=== PATIENT | female | born 1955 | race Caucasian/White ===

== ENCOUNTER 2016-12-26 16:49 | Inpatient (IN) | payer BC, OTHER ==
[~2016-12-26] VITALS: Ht 162.6 cm; Wt 66.2 kg
--- NOTE | 2016-12-26 17:00 | NUR ---
BIB [facility] 86 FROM HOME,SEIZURE EPISODE, [place] 5 MG IVP GIVEN AFTER SHE HAD ANOTHER SZ IN THE AMBULANCE. PT CAME IN AMS. VSS. SEIZURE PRECAUTIONS IMPLEMENTED. NO HEAD TRAUMA, NO ORAL TRAUMA NOTED. VSS. SEEN BY MD. SAFETY AND COMFORT MEASURES PROVIDED. WILL MONITOR.
[2016-12-26] MEDS ORDERED: UNK MEDS (17:04)
[2016-12-26 17:13] LABS: BASOPHILS # (AUTO) 0.1 /CMM (0.0-0.2); BASOPHILS % (AUTO) 1.2 % (0.0-2.0); EOSINOPHILS # (AUTO) 0.1 /CMM (0.0-0.7); EOSINOPHILS % (AUTO) 1.3 % (0.0-6.0); HEMATOCRIT 41 % (33-45); HEMOGLOBIN 13.6 g/dL (11.5-14.8); LYMPHOCYTES # (AUTO) 4.2 /CMM (0.8-4.8); LYMPHOCYTES % (AUTO) 41.7 % (20.0-44.0); MEAN CORPUSCULAR HEMOGLOBIN 28 PG (26.0-33.0); MEAN CORPUSCULAR HGB CONC 33 g/dl (31.0-36.0); MEAN CORPUSCULAR VOLUME 84 fL (82-100); MONOCYTES # (AUTO) 1.5 /CMM (0.1-1.30); NEUTROPHILS % (AUTO) 40.8 % (43.0-81.0); PLATELET COUNT (AUTO) 219 /CMM (150-450); RDW COEFFICIENT OF VARIATION 15.1 (11.5-15.0); RED BLOOD CELL COUNT(AUTO) 4.86 MIL/uL (4.0-5.2); WHITE BLOOD COUNT (AUTO) 9.9 K/uL (4.3-11.0)
--- NOTE | 2016-12-26 17:20 | NUR ---
URINE SAMPLE OBTAINED, SENT. BLOOD DRAWN FOR LABS.
[2016-12-26 17:27] LABS: ALANINE AMINOTRANSFERASE 39 U/L (12-78); ALBUMIN 3.3 g/dL (3.4-5.0); ALKALINE PHOSPHATASE 59 U/L (46-116); ASPARTATE AMINOTRANSFERASE 32 U/L (15-37); BILIRUBIN,DIRECT 0.1 mg/dL (0.0-0.2); BILIRUBIN,TOTAL 0.4 mg/dL (0.2-1.0); CALCIUM, SERUM 9.3 mg/dL (8.5-10.1); CARBON DIOXIDE 24 mmol/L (21-32); CHLORIDE 101 mmol/L (98-107); CREATININE 1.2 mg/dL (0.6-1.3); GFR 45 mL/min (>60); GLUCOSE 132 mg/dL (74-106); POTASSIUM 4.5 mmol/L (3.5-5.1); SODIUM SERUM 135 mmol/L (136-145); TOTAL PROTEIN, SERUM 6.6 g/dL (6.4-8.2); UREA NITROGEN, BLOOD 28 mg/dL (7-18)
[2016-12-26 17:36] LABS: CANNABINOID, URINE NEGATIVE (NEGATIVE); PHENCYCLIDINE SCREEN,URINE NEGATIVE (NEGATIVE)
[2016-12-26 17:41] LABS: VALPROIC ACID 63 ug/mL (50-100)
[2016-12-26 17:44] LABS: PHENOBARBITAL 1 ug/ml (15-39); PHENYTOIN (DILANTIN) < 0.5 ug/ml (10.0-20.0)
--- NOTE | 2016-12-26 18:00 | NUR ---
FAMILY MEMBERS AT BS AND UPDATED WITH PT'S STATUS.
--- NOTE | 2016-12-26 18:53 | NUR ---
MASON KNOWLES, BROTHER,
[2016-12-26 19:19] LABS: APPEARANCE,URINE Clear (CLEAR); BILIRUBIN,URINE Negative (NEGATIVE); BLOOD, URINE Negative Ery/uL (NEGATIVE); COLOR,URINE Yellow (YELLOW); KETONES,URINE Negative (NEGATIVE); LEUKOCYTE ESTERASE ,URINE Negative (NEGATIVE); NITRITE, URINE Negative (NEGATIVE); PROTEIN,URINE 30 mg/dl (NEGATIVE); UGLUCOSE Negative (NEGATIVE); UROBILINOGEN,URINE 0.2 EU/dL (0.2)
[2016-12-26] MEDS ORDERED: TIOT18CA3 IH (19:28)
[2016-12-26] MEDS ORDERED: NABU750T2 PO (19:28)
[2016-12-26] MEDS ORDERED: DIVA250T6 PO (19:28)
[2016-12-26] MEDS ORDERED: LEVO100T9 PO (19:28)
[2016-12-26] MEDS ORDERED: DULO30CA2 PO (19:28)
[2016-12-26] MEDS ORDERED: FENO200C PO (19:28)
[2016-12-26] MEDS ORDERED: SPIR25TA4 PO (19:28)
[2016-12-26] MEDS ORDERED: ALEN70TA45 PO (19:28)
[2016-12-26] MEDS ORDERED: OMEP20TA68 PO (19:28)
[2016-12-26] MEDS ORDERED: ATOR40TA PO (19:28)
[2016-12-26] MEDS ORDERED: TAMS-12 PO (19:28)
[2016-12-26] MEDS ORDERED: FLUT1BLS IH (19:28)
[2016-12-26] MEDS ORDERED: MONT10TA22 PO (19:28)
--- NOTE | 2016-12-26 19:40 | NUR ---
CALLED NURSING SUP. FOR TELE BED
--- NOTE | 2016-12-26 19:52 | NUR ---
ELLE-- CALLED [facility] PER AKILAH
--- NOTE | 2016-12-26 19:58 | NUR ---
ER TALKING TO DR. SCOTT KRAFT REGARDING PT ADMISSION. WILL CALL FOR REPORT WHEN BED IS AVAILABLE.
--- NOTE | 2016-12-26 20:53 | NUR ---
report given to telesales professionalsusan Wheeler. will transport pt via acls protocol.
[2016-12-26] MEDS ORDERED: IV NS 0.9% 1,000 ML IV PRN (20:57)
[2016-12-26] MEDS ORDERED: MAGNESIUM HYDROXIDE 30 ML UDC PO PRN (21:00)
[2016-12-26] MEDS ORDERED: ONDANSETRON HCL/PF 4 MG/2 ML VIAL IVP PRN (21:00)
[2016-12-26] MEDS ORDERED: ACETAMINOPHEN 325 MG TABLET PO PRN (21:00)
[2016-12-26] MEDS ORDERED: HYDROCODONE/APAP 5/325MG 1 EACH TABLET PO PRN (21:00)
[2016-12-26] MEDS ORDERED: ENOXAPARIN SODIUM 40 MG/0.4 ML DISP.SYRIN SQ SCH (21:00)
[2016-12-26] MEDS ORDERED: Z GUARD REMEDY 2 OZ OINT TP PRN (21:00)
[2016-12-26] MEDS ORDERED: ZOLPIDEM TARTRATE 5 MG TABLET PO PRN (21:00)
[2016-12-26] MEDS ORDERED: MAG HYDROX/AL HYDROX/SIMETH 30 ML UDC PO PRN (21:00)
[2016-12-26] MEDS ORDERED: LORAZEPAM INJ 2 MG/ML VIAL IV PRN (21:00)
[2016-12-26] MEDS ORDERED: ENOXAPARIN SODIUM 40 MG/0.4 ML DISP.SYRIN SQ ONE (21:43)
--- NOTE | 2016-12-26 21:50 | NUR ---
COOKER MEAL NOTE RECEIVED PATIENT FROM DAY SHIFT, PATIENT IS ALERT AND ORIENTEDX2-3, LITTLE LETHARGIC, HAD EPISODES OF SEIZUREX2 AT HOME AND IN THE AMBULANCE. PATIENT WAS ABLE TO ANSWER THE BASIC QUESTIONS WHEN A NURSE ASKED. IV ON RIGHT AC 20G IS PATENT AND INTACT, HL ONLY. SACRAL REDNESS NOTED, PICTURES TAKEN AND PUT THEM IN A CHART. TELE MONITOR SR 71. SRX2, BED IN LOW POSITION, CALL LIGHT WITHIN REACH, WILL CONTINUE TO MONITOR PATIENT.
[2016-12-26 22:35] VITALS: BP 141/73
[2016-12-27 00:36] VITALS: BP 172/77
[2016-12-27 04:07] VITALS: BP 154/68
[2016-12-27] MEDS ORDERED: IV NS 0.9% 1,000 ML ONE (06:15)
[2016-12-27] MEDS ORDERED: IV SET PRIMARY PUMP SET 1 EA INFUS.SET MC ONE (06:15)
[2016-12-27 06:54] LABS: BASOPHILS % (AUTO) 0.2 % (0.0-2.0); EOSINOPHILS % (AUTO) 0.1 % (0.0-6.0); HEMATOCRIT 46 % (33-45); HEMOGLOBIN 15.1 g/dL (11.5-14.8); LYMPHOCYTES # (AUTO) 1.8 /CMM (0.8-4.8); LYMPHOCYTES % (AUTO) 14.5 % (20.0-44.0); MEAN CORPUSCULAR HEMOGLOBIN 27 PG (26.0-33.0); MEAN CORPUSCULAR HGB CONC 33 g/dl (31.0-36.0); MEAN CORPUSCULAR VOLUME 82 fL (82-100); MONOCYTES # (AUTO) 1.6 /CMM (0.1-1.30); MONOCYTES % (AUTO) 12.6 % (2.0-12.0); NEUTROPHILS # (AUTO) 9.1 /CMM (1.8-8.9); NEUTROPHILS % (AUTO) 72.6 % (43.0-81.0); PLATELET COUNT (AUTO) 252 /CMM (150-450); RDW COEFFICIENT OF VARIATION 15.9 (11.5-15.0); RED BLOOD CELL COUNT(AUTO) 5.61 MIL/uL (4.0-5.2); WHITE BLOOD COUNT (AUTO) 12.6 K/uL (4.3-11.0)
--- NOTE | 2016-12-27 06:57 | NUR ---
INSURANCE AGENCY OWNER NOTE PATIENT IS RESTING IN BED COMFORTABLY, NO FACIAL GRIMACE OR RESPIRATORY DISTRESS NOTED. IV ON LEFT AC IS PATENT AND INTACT, FLUID IS RUNNING. NEURO CHECK UP DONE EVERY 4 HRS, PATIENT IS ALERT AND RESPONSIVE. TELE SR 84. WILL ENDORSE TO DAY SHIFT FOR HEATHER.
[2016-12-27 07:05] VITALS: BP 162/83
[2016-12-27 07:18] LABS: CALCIUM, SERUM 9.6 mg/dL (8.5-10.1); CREATININE 1.1 mg/dL (0.6-1.3); MAGNESIUM 2.2 mg/dL (1.8-2.4); PHOSPHORUS 4.1 mg/dL (2.5-4.9); POTASSIUM 4.1 mmol/L (3.5-5.1)
[2016-12-27 07:25] LABS: THYROID STIMULATING HORMONE 1.823 uIU/mL (0.358-3.74)
[2016-12-27] MEDS ORDERED: LEVOTHYROXINE SODIUM 100 MCG TABLET PO SCH (07:30)
[2016-12-27] MEDS ORDERED: PANTOPRAZOLE 40 MG TABLET.DR PO SCH (07:30)
--- NOTE | 2016-12-27 07:39 | NUR ---
FUNERAL HOME ASSOCIATE OPENING NOTE PATIENT IS ALERT AND ORIENTED x3. NO PAIN AT THIS TIME. NO SOB OR DISTRESS NOTED. CALL LIGHT WITHIN REACH. SAFETY MEASURES IMPLEMENTED. IV INTACT AND PATENT NO REDNESS OR SWELLING. ON SEIZURE PRECAUTION. WILL CONTINUE TO MONITOR
[2016-12-27 08:00] VITALS: BP 160/79
[2016-12-27] MEDS ORDERED: TAMSULOSIN 0.4 MG CAP.SR.24H PO SCH (09:00)
[2016-12-27] MEDS ORDERED: TIOTROPIUM BROMIDE 6 CAP/BOX CAP.W.DEV IH SCH (09:00)
[2016-12-27] MEDS ORDERED: MONTELUKAST SODIUM (10MG) 10 MG TABLET PO SCH (09:00)
[2016-12-27] MEDS ORDERED: SPIRONOLACTONE 25 MG TABLET PO SCH (09:00)
[2016-12-27] MEDS ORDERED: DULOXETINE HCL 30 MG CAPSULE.DR PO SCH (09:00)
[2016-12-27] MEDS ORDERED: ATORVASTATIN 40 MG TABLET PO SCH (09:00)
[2016-12-27] MEDS ORDERED: DIVALPROEX SODIUM 250 MG TABLET.DR PO SCH (09:00)
--- NOTE | 2016-12-27 09:39 | NUR ---
WOUND CARE CONSULT: PT PRESENTS WITH INCONTINENCE. SKIN TO BE KEPT CLEAN AND DRY. PT ON [employer] COMFORT GEL MATTRESS. PT TO BE TURNED AND REPOSITIONED EVERY 2 HRS PT CONDITION PERMITS, HEELS FLOATED. ALL SKIN PROTECTION MEASURES IN PLACE AND DISCUSSED WITH NURSING STAFF. MD IN AGREEMENT WITH PLAN OF CARE. Addendum: 12/27/16 at 0941 by LEXIS WILLETT WNDNU Amended: Links added.
[2016-12-27] MEDS ORDERED: DIVA250T4 PO (11:01)
[2016-12-27 12:00] VITALS: BP 143/81
[2016-12-27] MEDS ORDERED: IPRATROPIUM NEB FS 0.5 MG/2.5 ML AMPUL.NEB NEB SCH (13:30)
[2016-12-27 16:00] VITALS: BP 151/80
--- NOTE | 2016-12-27 18:15 | NUR ---
BALANCE WHEEL FACER NOTE PATIENT IS ALERT AND ORIENTED x3. NO PAIN AT THIS TIME. NO SOB OR DISTRESS NOTED. ALL DUE MEDICATION GIVEN ORDERED. ALL BELONGINGS WITH PATIENTS FAMILY. PRESCRIPTION GIVEN TO PATIENT AND CAREGIVER. SAFETY MEASURES IMPLEMENTED. IV REMOVED. SKIN INTACT. PATIENT GOING HOME WITH CAREGIVER AND HOME HEALTH
[2016-12-28] MEDS ORDERED: DIVALPROEX SODIUM 125 MG CAP.SPRINK PO SCH (09:00)
[2016-12-31] MEDS ORDERED: ALENDRONATE 70 MG TABLET PO SCH (09:00)
[2017-01-05] MEDS ORDERED: LEVO500T15 PO (10:47)
== END 2016-12-27 18:25 | disposition home health service (06) | DRG 101 ==
LOC: ER 16:50 → TELE 20:49 → MED 12-27 09:09
PROVIDERS: ADMIT Internal Medicine; ATTEND Internal Medicine
DX: G40.909 Epilepsy, unspecified, not intractable, without status epilepticus (principal); E87.1 Hypo-osmolality and hyponatremia; E44.1 Mild protein-calorie malnutrition; N31.9 Neuromuscular dysfunction of bladder, unspecified; E88.09 Other disorders of plasma-protein metabolism, not elsewhere classified; D72.829 Elevated white blood cell count, unspecified; E86.9 Volume depletion, unspecified; E03.9 Hypothyroidism, unspecified; Z79.899 Other long term (current) drug therapy; Z68.25 Body mass index [BMI] 25.0-25.9, adult
CPT/HCPCS: 36415; 70450-TC; 71010-TC; 80048-TC; 80061-TC; 80076-TC; 80164-TC; 80184-TC; 80185-TC; 80305; 81000-TC; 82962-TC; 83735-TC; 84100-TC; 84443-TC; 85025-TC; 87081-TC; 87086-TC; A4606; J1650; J7030; Z7610

== ENCOUNTER 2017-01-02 14:06 | Inpatient (IN) | payer OTHER ==
[~2017-01-02] VITALS: Ht 165.1 cm; Wt 73.0 kg
[~2017-01-02 14:06] MED LIST: ALEN70TA45 PO; ATOR40TA PO; DIVA250T4 PO; DIVA250T6 PO; DULO30CA2 PO; FENO200C PO; FLUT1BLS IH; LEVO100T9 PO; MONT10TA22 PO; NABU750T2 PO; OMEP20TA68 PO; SPIR25TA4 PO; TAMS-12 PO; TIOT18CA3 IH; UNK MEDS
[2017-01-02] MEDS ORDERED: IV NS 0.9% 1,000 ML BAG IV ONE (14:30)
[2017-01-02] MEDS ORDERED: IV NS 0.9% 500 ML IV ONE (14:42)
[2017-01-02] MEDS ORDERED: IV SET PRIMARY 1 EA INFUS.SET MC ONE (14:42)
[2017-01-02] MEDS ORDERED: IV NS 0.9% 2,000 ML ONE (14:42)
[2017-01-02 14:43] LABS: BASOPHILS # (AUTO) 0.3 /CMM (0.0-0.2); BASOPHILS % (AUTO) 1.8 % (0.0-2.0); EOSINOPHILS % (AUTO) 0.1 % (0.0-6.0); HEMATOCRIT 34 % (33-45); HEMOGLOBIN 11.9 g/dL (11.5-14.8); LYMPHOCYTES % (AUTO) 6.8 % (20.0-44.0); MEAN CORPUSCULAR HEMOGLOBIN 29 PG (26.0-33.0); MEAN CORPUSCULAR HGB CONC 35 g/dl (31.0-36.0); MEAN CORPUSCULAR VOLUME 82 fL (82-100); MONOCYTES # (AUTO) 1.9 /CMM (0.1-1.30); MONOCYTES % (AUTO) 12.3 % (2.0-12.0); NEUTROPHILS # (AUTO) 12.2 /CMM (1.8-8.9); PLATELET COUNT (AUTO) 259 /CMM (150-450); RDW COEFFICIENT OF VARIATION 14.7 (11.5-15.0); RED BLOOD CELL COUNT(AUTO) 4.18 MIL/uL (4.0-5.2); WHITE BLOOD COUNT (AUTO) 15.4 K/uL (4.3-11.0)
[2017-01-02 14:50] LABS: CALCIUM, SERUM 8.4 mg/dL (8.5-10.1); CARBON DIOXIDE 24 mmol/L (21-32); CHLORIDE 103 mmol/L (98-107); CREATININE 1.9 mg/dL (0.6-1.3); GFR 27 mL/min (>60); GLUCOSE 218 mg/dL (74-106); POTASSIUM 4.5 mmol/L (3.5-5.1); SODIUM SERUM 136 mmol/L (136-145); UREA NITROGEN, BLOOD 39 mg/dL (7-18)
[2017-01-02 14:54] LABS: INR 1.12 (0.87-1.13); PROTHROMBIN TIME 11.7 SECS (9.5-12.7)
[2017-01-02 14:56] LABS: ALANINE AMINOTRANSFERASE 31 U/L (12-78); ALBUMIN 2.4 g/dL (3.4-5.0); ALKALINE PHOSPHATASE 60 U/L (46-116); ASPARTATE AMINOTRANSFERASE 28 U/L (15-37); BILIRUBIN,DIRECT 0.2 mg/dL (0.0-0.2); BILIRUBIN,TOTAL 0.7 mg/dL (0.2-1.0)
[2017-01-02 14:58] LABS: TROPONIN I < 0.017 ng/mL (0.00-0.056)
[2017-01-02] MEDS ORDERED: LEVA15HF5 IH (15:11)
[2017-01-02] MEDS ORDERED: ASCO10007 PO (15:11)
[2017-01-02] MEDS ORDERED: DIVA500T7 PO (15:11)
[2017-01-02] MEDS ORDERED: DIVA500T54 PO (15:11)
[2017-01-02] MEDS ORDERED: FOLI1TAB16 PO (15:11)
[2017-01-02] MEDS ORDERED: CA C1TAB95 PO (15:11)
[2017-01-02] MEDS ORDERED: CARB15DR63 OT (15:11)
[2017-01-02] MEDS ORDERED: VITA400C24 PO (15:11)
[2017-01-02] MEDS ORDERED: KETO15CR TP (15:11)
[2017-01-02] MEDS ORDERED: BETH25TA PO (15:11)
[2017-01-02] MEDS ORDERED: ASPI81TA2 PO (15:11)
[2017-01-02] MEDS ORDERED: FLUT16SP BNOSTRILS (15:11)
[2017-01-02] MEDS ORDERED: LEVO250C PO (15:11)
[2017-01-02] MEDS ORDERED: DESO15CR TP (15:11)
[2017-01-02] MEDS ORDERED: [UNRECOGNIZED DRUG - CODE] PO (15:11)
[2017-01-02 15:13] LABS: LACTIC ACID 3.1 mmol/L (0.4-2.0)
--- NOTE | 2017-01-02 15:20 | NUR ---
URINE SAMPLE COLLECTED VIA STRAIGHT ALFARO CATHETER, PT TOLERATED WELL
[2017-01-02 15:35] LABS: APPEARANCE,URINE Cloudy (CLEAR); BILIRUBIN,URINE Negative (NEGATIVE); BLOOD, URINE Moderate Ery/uL (NEGATIVE); COLOR,URINE Yellow (YELLOW); KETONES,URINE Negative (NEGATIVE); LEUKOCYTE ESTERASE ,URINE Large (NEGATIVE); NITRITE, URINE Negative (NEGATIVE); PH,URINE 5.5 (5.0-8.0); PROTEIN,URINE 100 mg/dl (NEGATIVE); UGLUCOSE Negative (NEGATIVE); UROBILINOGEN,URINE 0.2 EU/dL (0.2)
[2017-01-02 15:41] LABS: ADD URINE CULTURE YES; BACTERIA,URINE 3+ /HPF (None Seen); WBC,URINE 51-80 /HPF (0-3)
[2017-01-02 15:42] LABS: SQUAMOUS EPITHELIAL CELL,UR Few /HPF (None Seen)
[2017-01-02 15:45] LABS: ANISOCYTOSIS 1+; BAND % (MANUAL) 23 % (0.0-5.0); LYMPHOCYTES % (MANUAL) 5 % (16-48); MONOCYTES % (MANUAL) 20 % (0-11.0); NEUTROPHILS % (MANUAL) 52 (42-76); PLATELET ESTIMATE ADEQUATE
[2017-01-02] MEDS ORDERED: CEFTRIAXONE 1GM BAG (ER ONLY) 1 GM/50 ML PIGGYBACK IV ONE (16:00)
[2017-01-02] MEDS ORDERED: CEFTRIAXONE 1GM BAG (ER ONLY) 50 ML IV ONE (16:00)
[2017-01-02] MEDS ORDERED: IV SET PRIMARY PUMP SET 1 EA INFUS.SET MC ONE ×2 (16:00→18:51)
--- NOTE | 2017-01-02 16:22 | NUR ---
DR.SHAO CAUSEY
--- NOTE | 2017-01-02 16:30 | NUR ---
Patient is resting comfortably in bed with eyes closed. Easily aroused. VSS
--- NOTE | 2017-01-02 16:46 | NUR ---
REPORT GIVEN TO DONI 112-1 TELE
[2017-01-02 17:00] VITALS: BP 143/80
[2017-01-02] MEDS: FLUTICASONE PROPIONATE 16 GM BOTTLE NS SCH (18:00)
[2017-01-02] MEDS ORDERED: KETOCONAZOLE 2% CREAM 15 GM TUBE TP PRN (18:00)
[2017-01-02] MEDS ORDERED: Potassium Chloride 20 MEQ in IV NS 0.9% 1,000 ML IV PRN (18:30)
[2017-01-02] MEDS ORDERED: LEVOFLOXACIN 500 MG /D5W 100ML 500 MG in PREMIX 1 EA IV ONE (18:30)
[2017-01-02] MEDS: ACETAMINOPHEN 325 MG TABLET PO PRN (18:49)
[2017-01-02] MEDS ORDERED: SECONDARY IV SET 1 EA INFUS.SET MC ONE (18:51)
[2017-01-02] MEDS: IV NS 0.9% 1,000 ML IV PRN (19:00)
[2017-01-02] MEDS ORDERED: IV NS 0.9% 1,000 ML BAG IV SCH (19:00)
[2017-01-02] MEDS: FOLIC ACID 1 MG TABLET PO SCH (19:10)
[2017-01-02] MEDS: VITAMIN E 400 UNIT CAPSULE PO SCH (19:10)
[2017-01-02] MEDS: TAMSULOSIN 0.4 MG CAP.SR.24H PO SCH (19:10)
--- NOTE | 2017-01-02 19:15 | NUR ---
RN INITIAL NOTES RECEIVED PATIENT IN BED, PATIENT OBSERVED TO BE LETHARGIC, EASILY AROUSABLE WITH VERBAL AND TACTILE STIMULI. DENIES ANY PAIN AND DISCOMFORT. PATIENT OBSERVED TO BE FLUSHED, SKIN IS WARM AND MOIST TO TOUCH, PATIENT IS ST ON TELE WITH HR OF 118, BREATHING IS SHALLOW AT RATE OF 24. PER AM NURSE, PATIENT WAS GIVEN TYLENOL FOR TEMP OF 100.4 AT 1850. TEMP RECHECKED AT THIS TIME AND NOTED TO BE 98.4. WILL MONITOR CLOSELY. PATIENT WITH L HAND G20, FLUSHED AND INTACT, DRESSING CHANGED NEEDED, KEPT INTACT, IVF OF NS AT 75CC/HR INFUSING WELL. R AC G18, FLUSHED AND PATENT, ON SL. PATIENT'S NEEDS ANTICIPATED AND MET. SAFETY AND COMFORT ENSURED. BED ALARM IN PLACE. REPOSITIONED PATIENT FOR SAFETY. CALL LIGHT IN REACH. WILL MONITOR.
[2017-01-02 20:00] VITALS: BP 93/56
--- NOTE | 2017-01-02 20:30 | NUR ---
RN NOTES RECHECKED PATIENT AND PATIENT IN BED, SLEEPING COMFORTABLY. NO DISTRESS AT THIS TIME. STILL ST WITH HR OF 109. AFEBRILE, COOLING MEASURES CONTINUED. PATIENT ABLE TO BE MORE RESPONSIVE WITH STAFF, ALERT AND ORIENTED X3. OFFERED FLUIDS TOLERATED BY PATIENT, ASPIRATION PRECAUTIONS OBSERVED AT ALL TIMES. NEEDS ANTICIPATED. CALL LIGHT IN REACH.
[2017-01-02] MEDS: DIVALPROEX SODIUM 500 MG TABLET.DR PO SCH (21:00)
--- NOTE | 2017-01-02 21:36 | NUR ---
RN NOTES PATIENT REFUSED TO TAKE HER SCHEDULED DEPAKOTE ORDERED. PER PATIENT SHE ONLY TAKES IT IN THE MORNING WITH BREAKFAST. EXPLAINED TO PATIENT THE RISKS AND BENEFITS X3. PATIENT STRONGLY REFUSED AND INSISTED THAT SHE ONLY TAKES IT IN THE MORNING. PATIENT IS ALERT AND ORIENTED. WILL MONITOR CLOSELY FOR ANY SEIZURE ACTIVITY.
[2017-01-02] MEDS ORDERED: CARBAMIDE PEROXIDE OTIC 15 ML BOTTLE OT SCH (22:00)
[2017-01-03] VITALS: BP 93/47
[2017-01-03 04:00] VITALS: BP 95/56
[2017-01-03] MEDS: IV NS 0.9% 1,000 ML IV PRN (05:57)
--- NOTE | 2017-01-03 06:25 | NUR ---
RN CLOSING NOTES PATIENT IN BED, AWAKE AND ALERT ORIENTED X2-3, REORIENTED NEEDED WITH HELP. PATIENT DENIES ANY PAIN AND DISCOMFORT. NOT IN ANY FORM OF CARDIAC/RESPIRATORY DISTRESS OBSERVED OVERNIGHT. PATIENT AFEBRILE, VS MONITORED CLOSELY. IVF INFUSING WELL ON PATIENT'S L HAND G20, NO SIGNS OF INFILTRATION NOTED. R AC G18, FLUSHED AND KEPT PATENT. PATIENT KEPT CLEAN AND DRY. TURNED AND REPOSITIONED [id number]. PATIENT'S NEEDS ANTICIPATED AND MET. SAFETY AND COMFORT ENSURED. BED IN LOW AND LOCKED POSITION. CALL LIGHT IN REACH. WILL ENDORSE ACCORDINGLY FOR CONTINUITY OF CARE. Addendum: 01/03/17 at 0639 by GRISELDA BURDEN RN PATIENT IS SR WITH HR IN THE 90s OVERNIGHT.
--- NOTE | 2017-01-03 07:00 | NUR ---
RN INITIAL NOTE RECEIVED PT FROM PM NURSE. PT A/O 2-3 ABLE TO VERBALIZE NEEDS AND WANTS. NC 2L SPO2 97 % NO C/O OF ACUTE SOB. TELE SR 92. BILATERAL HEARING AIDS INTACT.IV L HAND #20G NS @ 75 ML/HR R AC #18G SL PATENT FLUSHED AND INTACT. PT CLEAN WARM AND DRY COMFORTABLE IN BED. ALL SAFETY MEASURES IN PLACE. WILL CONTINUE TO CLOSELY MONITOR.
--- NOTE | 2017-01-03 07:10 | NUR ---
RN INITIAL NOTE RECEIVED PT FROM PM NURSE. PT A/O X2 KITTITIAN SPEAKING ABLE TO MOUTH WORDS. [place] #8 [id number]% COOL AEROSOL. GT PLACEMENT CK NO RESIDUAL NOVASOURCE 60ML/HR. IV YARY PICC LINE NS@TKO PATENT FLUSHED AND INTACT. R FEMORAL HD CATH. ALL SAFETY MEASURES IN PLACE. WILL CONTINUE TO MONITOR CLOSELY. Addendum: 01/03/17 at 0745 by DAVIE HERNANDEZ RN INITIAL NOTE ABOVE NOT FOR PT ABOVE.
[2017-01-03 08:00] VITALS: BP 80/40
[2017-01-03 08:09] LABS: EOSINOPHILS % (AUTO) 0.1 % (0.0-6.0); HEMATOCRIT 30 % (33-45); LYMPHOCYTES # (AUTO) 1.4 /CMM (0.8-4.8); LYMPHOCYTES % (AUTO) 7.4 % (20.0-44.0); MEAN CORPUSCULAR HEMOGLOBIN 28 PG (26.0-33.0); MEAN CORPUSCULAR HGB CONC 33 g/dl (31.0-36.0); MEAN CORPUSCULAR VOLUME 83 fL (82-100); MONOCYTES # (AUTO) 2.9 /CMM (0.1-1.30); MONOCYTES % (AUTO) 15.7 % (2.0-12.0); NEUTROPHILS # (AUTO) 14.1 /CMM (1.8-8.9); NEUTROPHILS % (AUTO) 76.8 % (43.0-81.0); PLATELET COUNT (AUTO) 192 /CMM (150-450); RED BLOOD CELL COUNT(AUTO) 3.63 MIL/uL (4.0-5.2); WHITE BLOOD COUNT (AUTO) 18.4 K/uL (4.3-11.0)
[2017-01-03 08:10] LABS: CALCIUM, SERUM 7.4 mg/dL (8.5-10.1); CREATININE 2.5 mg/dL (0.6-1.3); MAGNESIUM 1.6 mg/dL (1.8-2.4); PHOSPHORUS 3.8 mg/dL (2.5-4.9); POTASSIUM 4.4 mmol/L (3.5-5.1)
[2017-01-03] MEDS: FLUTICASONE PROPIONATE 16 GM BOTTLE NS SCH (08:14)
[2017-01-03] MEDS: FOLIC ACID 1 MG TABLET PO SCH ×2 (08:14→17:27)
[2017-01-03] MEDS: ASCORBIC ACID 500 MG TABLET PO SCH (08:15)
[2017-01-03] MEDS: PANTOPRAZOLE 40 MG TABLET.DR PO SCH (08:15)
[2017-01-03] MEDS: VITAMIN E 400 UNIT CAPSULE PO SCH (08:15)
[2017-01-03] MEDS: MONTELUKAST SODIUM (10MG) 10 MG TABLET PO SCH (08:15)
[2017-01-03] MEDS: ATORVASTATIN 40 MG TABLET PO SCH (08:15)
[2017-01-03] MEDS: LEVOTHYROXINE SODIUM 100 MCG TABLET PO SCH (08:15)
[2017-01-03] MEDS: BETHANECHOL CHLORIDE (25 MG) 25 MG TABLET PO SCH ×2 (08:15→17:28)
[2017-01-03] MEDS: DIVALPROEX SODIUM 500 MG TABLET.DR PO SCH ×2 (08:16→12:20)
[2017-01-03] MEDS: CALCIUM CITRATE(CITRACAL) /VITAMIN D 1 TAB TABLET PO SCH (08:16)
[2017-01-03] MEDS: ASPIRIN 81 MG TAB.CHEW PO SCH (08:16)
[2017-01-03] MEDS: MULTIVIT, IRON, MIN NO. 8, FA 1 TAB TABLET PO SCH (08:17)
[2017-01-03] MEDS ORDERED: LEVOCARNITINE PO SCH (09:00)
[2017-01-03] MEDS ORDERED: NABUMETONE 500 MG TABLET PO SCH (09:00)
[2017-01-03] MEDS ORDERED: MEROPENEM 1 G in IV NS 0.9% 100 ML IV SCH (09:00)
[2017-01-03] MEDS ORDERED: PIPERACILLIN /TAZOBACTAM 2.25 G in IV D5W 50 ML IV SCH (09:00)
[2017-01-03] MEDS ORDERED: LEVOFLOXACIN 250 MG /D5W 50 ML 250 MG in PREMIX 1 EA IV SCH ×2 (09:00→18:00)
--- NOTE | 2017-01-03 09:59 | NUR ---
RN NOTE PT SOB HX OF ASTHMA CALLED DR. BETTENCOURT ORDERED ALBUTEROL 1 UNIT Q4 HR PRN. CALL RT TO START TX.
[2017-01-03] MEDS ORDERED: IPRATROPIUM BROMIDE 14 GM INHALER (or 12.9 GM) IH PRN (10:00)
[2017-01-03] MEDS ORDERED: SECONDARY IV SET 1 EA INFUS.SET MC ONE ×2 (10:00→14:54)
[2017-01-03] MEDS: NABUMETONE 500 MG TABLET PO SCH (10:06)
[2017-01-03] MEDS: Magnesium 1GM/D5W 100ML PREMIX 100 ML IV SCH ×2 (10:06→12:16)
[2017-01-03] MEDS: ALBUTEROL FS 2.5 MG/0.5 ML VIAL.NEB NEB PRN ×2 (10:25→10:27)
[2017-01-03] MEDS ORDERED: MEROPENEM 500 MG in IV NS 0.9% 50 ML IV SCH (11:00)
--- NOTE | 2017-01-03 11:21 | NUR ---
RN NOTE CALLED DR. BETTENCOURT BLADDER SCAN DONE PT RETAINING 1260 ML OF URINE. ORDERED F/C INSERTION.
[2017-01-03] MEDS ORDERED: Z GUARD REMEDY 2 OZ OINT TP PRN (11:30)
[2017-01-03 12:00] VITALS: BP 105/49
--- NOTE | 2017-01-03 12:00 | NUR ---
RN NOTE UNABLE TO HANG MERREM ABX DUE TO 2 BAGS OF MAG NEEDED TO BE GIVEN WILL CALL PHARMACY.
[2017-01-03 13:08] LABS: BAND % (MANUAL) 22 % (0.0-5.0); LYMPHOCYTES % (MANUAL) 10 % (16-48); METAMYELOCYTES % 2 % (0-0); MONOCYTES % (MANUAL) 8 % (0-11.0); NEUTROPHILS % (MANUAL) 58 (42-76)
[2017-01-03 13:09] LABS: ANISOCYTOSIS 1+; PLATELET ESTIMATE ADEQUATE
[2017-01-03] MEDS: MEROPENEM 500 MG in IV NS 0.9% 50 ML IV SCH (14:57)
[2017-01-03] MEDS: ALBUTEROL FS 2.5 MG/3 ML VIAL.NEB NEB SCH ×2 (15:15→23:34)
[2017-01-03 16:00] VITALS: BP 98/48
[2017-01-03] MEDS: TAMSULOSIN 0.4 MG CAP.SR.24H PO SCH (17:28)
--- NOTE | 2017-01-03 19:15 | NUR ---
RN INITIAL NOTES RECEIVED PATIENT IN BED, AWAKE AND ALERT X2-3. DENIES ANY PAIN AND DISCOMFORT. ON 2LPM OF O2 VIA NC, RESPIRATION IS EVEN AND UNLABORED WITH NO DISTRESS. SR ON TELE WITH HR AT 98. L FOREARM G20, INTACT AND PATENT, NO SIGNS OF INFILTRATION. IVF OF NS AT 75CC/HR INFUSING WELL. PATIENT WITH F/C INTACT, OBSERVED TO BE WITH CLOUDY, (+) SEDIMENTS HEMATURIA ON THE F/C TUBING AND ALFARO BAG. URINE OUTPUT DRAINED AT THIS TIME, WILL MONITOR CLOSELY FOR ANY FURTHER BLEEDING. PATIENT DENIES ANY URINARY DISCOMFORT AT THIS TIME, NO BLADDER DISTENTION NOTED. PATIENT'S NEEDS ANTICIPATED AND MET. SAFETY AND COMFORT ENSURED. BED IN LOW AND LOCKED POSITION. CALL LIGHT IN REACH. WILL MONITOR CLOSELY.
--- NOTE | 2017-01-03 19:52 | NUR ---
RN CLOSING NOTE PT A/O 2-3 ABLE TO VERBALIZE NEEDS AND WANTS. NC 2. TELE SR 92. BILATERAL HEARING AIDS INTACT.IV LFA #20G NS @ 75 ML/HR PATENT FLUSHED AND INTACT. F/C 2000ML HEMATURIA AND CLOUDY SEDIMENT. PT CLEAN WARM AND DRY COMFORTABLE IN BED. ALL SAFETY MEASURES IN PLACE. ALL MEDICATIONS GIVEN ALL ORDERS CARRIED OUT. REPORT GIVEN TO PM NURSE.
[2017-01-03 20:00] VITALS: BP 107/49
--- NOTE | 2017-01-03 20:16 | NUR ---
RN NOTES SPOKE WITH DR. BETTENCOURT AND FOLLOWED UP WITH REGARDS TO THE PATIENT DVT PROPHYLAXIS, ORDER FOR DVT PUMPS AND LOVENOX OBTAINED, ORDER NOTED AND CARRIED OUT. ALSO FOLLOWED UP AND UPDATED DR. BETTENCOURT OF THE PATIENT'S HEMATURIA NOTED ON F/C. F/C FLUSHED AND WILL MONITOR FOR ANY FURTHER HEMATURIA VS TRAUMA FROM INSERTION. ALSO INFORMED DR. BETTENCOURT OF THE PATIENT'S REFUSAL TO TAKE DEPAKOTE DUE AT 9PM D/T PER PATIENT SHE TAKES IT WITH MEALS. DR. BETTENCOURT ORDERED TO RESUME HOW THE PATIENT USUALLY TAKE IT FROM HOME. ORDERS NOTED AND CARRIED OUT. PATIENT AWARE.
[2017-01-03] MEDS ORDERED: ENOXAPARIN SODIUM 40 MG/0.4 ML DISP.SYRIN SQ SCH (21:00)
--- NOTE | 2017-01-03 21:30 | NUR ---
RN NOTES PATIENT'S F/C OUTPUT REASSESSED. NO FURTHER HEMATURIA NOTED, PATIENT'S URINE IS YELLOW TO MARY COLORED, CLOUDY WITH MINIMAL SEDIMENTS NOTED. PATIENT WITH NO C/O URINARY DISCOMFORT, NO BLADDER DISTENTION NOTED.
[2017-01-03] MEDS: ENOXAPARIN SODIUM 30 MG/0.3 ML DISP.SYRIN SQ SCH (21:58)
[2017-01-04] VITALS: BP 103/57
[2017-01-04] MEDS: IV NS 0.9% 1,000 ML IV PRN (00:49)
--- NOTE | 2017-01-04 03:00 | NUR ---
RN NOTES PATIENT WAS SLEEPING COMFORTABLY, RESPIRATION IS EVEN AND UNLABORED, NO DISTRESS. PATIENT WOKE UP AT 0245, PATIENT OBSERVED TO BE EXHIBITING SOB, PATIENT IS FLUSHED, DIAPHORETIC, TACHYPNEIC WITH HR OF 105, PATIENT IS AFEBRILE AT 98.5. PATIENT NOTED WITH DIMINISHED BREATH SOUNDS, MINIMAL CONGESTION AND WHEEZING NOTED. PATIENT'S SATURATION AT 96%. COORDINATED WITH RT FOR THE PRN BREATHING TREATMENT. WILL MONITOR.
[2017-01-04] MEDS: MEROPENEM 500 MG in IV NS 0.9% 50 ML IV SCH ×2 (03:07→15:40)
[2017-01-04] MEDS: ALBUTEROL FS 2.5 MG/0.5 ML VIAL.NEB NEB PRN ×2 (03:12→15:56)
[2017-01-04] MEDS: IPRATROPIUM NEB FS 0.5 MG/2.5 ML AMPUL.NEB NEB PRN ×3 (03:12→15:56)
[2017-01-04 04:00] VITALS: BP 111/65
--- NOTE | 2017-01-04 06:37 | NUR ---
RN CLOSING NOTES PATIENT WITH NO FURTHER HEMATURIA NOTED. PATIENT'S URINE CHARACTERISTICS NOTED TO BE MARY IN COLOR, CLOUDY WITH MINIMAL SEDIMENTS. PATIENT ALSO OBSERVED WITH EPISODES OF SOB, PRN BREATHING TREATMENT GIVEN NEEDED, WITH HELP FOR THE PATIENT. IVF INFUSING WELL ON PATIENT'S L FOREARM, NO SIGNS OF INFILTRATION. PATIENT'S NEEDS ANTICIPATED AND MET. SAFETY AND COMFORT ENSURED. BED IN LOW AND LOCKED POSITION. CALL LIGHT IN REACH. WILL ENDORSE ACCORDINGLY FOR CONTINUITY OF CARE.
[2017-01-04 07:33] LABS: HEMATOCRIT 32 % (33-45); HEMOGLOBIN 10.5 g/dL (11.5-14.8); LYMPHOCYTES % (AUTO) 6.9 % (20.0-44.0); MEAN CORPUSCULAR HEMOGLOBIN 27 PG (26.0-33.0); MEAN CORPUSCULAR HGB CONC 33 g/dl (31.0-36.0); MEAN CORPUSCULAR VOLUME 83 fL (82-100); MONOCYTES # (AUTO) 1.9 /CMM (0.1-1.30); MONOCYTES % (AUTO) 12.9 % (2.0-12.0); NEUTROPHILS # (AUTO) 11.5 /CMM (1.8-8.9); NEUTROPHILS % (AUTO) 80.2 % (43.0-81.0); PLATELET COUNT (AUTO) 214 /CMM (150-450); RDW COEFFICIENT OF VARIATION 16.1 (11.5-15.0); RED BLOOD CELL COUNT(AUTO) 3.82 MIL/uL (4.0-5.2); WHITE BLOOD COUNT (AUTO) 14.3 K/uL (4.3-11.0)
[2017-01-04 07:39] LABS: CALCIUM, SERUM 7.8 mg/dL (8.5-10.1); CREATININE 1.8 mg/dL (0.6-1.3); MAGNESIUM 2.5 mg/dL (1.8-2.4); POTASSIUM 4.1 mmol/L (3.5-5.1)
[2017-01-04] MEDS: ALBUTEROL FS 2.5 MG/3 ML VIAL.NEB NEB SCH (07:39)
[2017-01-04 08:00] VITALS: BP 120/56
--- NOTE | 2017-01-04 08:00 | NUR ---
RECEIVED PT.CONFUSED,FORGETFUL ORIENTED X2.SIDE RAILS UP.COLOR GOOD,VS STABLE.F/C TO GRAVITY DRAINAGE WITH GOOD OUTPUT.ADULT EDUCATION PROFESSIONAL LIGHT FREQ.
[2017-01-04] MEDS: FOLIC ACID 1 MG TABLET PO SCH ×2 (09:23→18:37)
[2017-01-04] MEDS: MONTELUKAST SODIUM (10MG) 10 MG TABLET PO SCH (09:23)
[2017-01-04] MEDS: NABUMETONE 500 MG TABLET PO SCH (09:23)
[2017-01-04] MEDS: MULTIVIT, IRON, MIN NO. 8, FA 1 TAB TABLET PO SCH (09:23)
[2017-01-04] MEDS: ASPIRIN 81 MG TAB.CHEW PO SCH (09:23)
[2017-01-04] MEDS: DIVALPROEX SODIUM 500 MG TABLET.DR PO SCH ×3 (09:24→18:37)
[2017-01-04] MEDS: VITAMIN E 400 UNIT CAPSULE PO SCH (09:24)
[2017-01-04] MEDS: ASCORBIC ACID 500 MG TABLET PO SCH (09:24)
[2017-01-04] MEDS: ATORVASTATIN 40 MG TABLET PO SCH (09:24)
[2017-01-04] MEDS: LEVOTHYROXINE SODIUM 100 MCG TABLET PO SCH (09:25)
[2017-01-04] MEDS: BETHANECHOL CHLORIDE (25 MG) 25 MG TABLET PO SCH ×2 (09:25→18:37)
[2017-01-04] MEDS: PANTOPRAZOLE 40 MG TABLET.DR PO SCH (09:25)
[2017-01-04] MEDS: FLUTICASONE PROPIONATE 16 GM BOTTLE NS SCH (09:27)
[2017-01-04] MEDS: CALCIUM CITRATE(CITRACAL) /VITAMIN D 1 TAB TABLET PO SCH (09:27)
--- NOTE | 2017-01-04 09:30 | NUR ---
CAREGIVER IN TO VISIT,BROUGHT IN 2 MEDS FOR PHARM. FROM HOME RECEIPT IN CHART.
[2017-01-04] MEDS ORDERED: XOPENEX INHALER INH PRN (11:30)
--- NOTE | 2017-01-04 11:30 | NUR ---
SPOUSE IN TO VISIT.
[2017-01-04 12:00] VITALS: BP 134/53
[2017-01-04] MEDS ORDERED: FENOFIBRATE NANOCRYS (145 MG) 145 MG TABLET PO SCH (12:30)
[2017-01-04 16:00] VITALS: BP 131/42
--- NOTE | 2017-01-04 18:30 | NUR ---
MED COMPLIANT,NO COMPLAINTS OFFERED.RESTING,O2 ON.
[2017-01-04] MEDS: TAMSULOSIN 0.4 MG CAP.SR.24H PO SCH (18:38)
[2017-01-04 20:00] VITALS: BP 101/54
[2017-01-04] MEDS: ENOXAPARIN SODIUM 30 MG/0.3 ML DISP.SYRIN SQ SCH (20:32)
[2017-01-05] VITALS: BP 133/50
[2017-01-05] MEDS: MEROPENEM 500 MG in IV NS 0.9% 50 ML IV SCH (03:11)
[2017-01-05] MEDS: IV NS 0.9% 1,000 ML IV PRN (03:17)
[2017-01-05 04:00] VITALS: BP 123/48
[2017-01-05 06:55] LABS: BASOPHILS % (AUTO) 0.3 % (0.0-2.0); HEMATOCRIT 30 % (33-45); HEMOGLOBIN 10.1 g/dL (11.5-14.8); LYMPHOCYTES # (AUTO) 1.2 /CMM (0.8-4.8); LYMPHOCYTES % (AUTO) 9.5 % (20.0-44.0); MEAN CORPUSCULAR HEMOGLOBIN 27 PG (26.0-33.0); MEAN CORPUSCULAR HGB CONC 33 g/dl (31.0-36.0); MEAN CORPUSCULAR VOLUME 82 fL (82-100); MONOCYTES # (AUTO) 1.7 /CMM (0.1-1.30); MONOCYTES % (AUTO) 13.9 % (2.0-12.0); NEUTROPHILS # (AUTO) 9.4 /CMM (1.8-8.9); NEUTROPHILS % (AUTO) 76.3 % (43.0-81.0); PLATELET COUNT (AUTO) 239 /CMM (150-450); RDW COEFFICIENT OF VARIATION 16.2 (11.5-15.0); RED BLOOD CELL COUNT(AUTO) 3.71 MIL/uL (4.0-5.2); WHITE BLOOD COUNT (AUTO) 12.3 K/uL (4.3-11.0)
[2017-01-05 07:11] LABS: CALCIUM, SERUM 8.2 mg/dL (8.5-10.1); CREATININE 1.3 mg/dL (0.6-1.3); POTASSIUM 4.8 mmol/L (3.5-5.1)
--- NOTE | 2017-01-05 07:15 | NUR ---
RN INITIAL NOTE PT RECEIVED IN BED, AWAKE, ALERT AND ORIENTED. ABLE TO MAKE NEEDS KNOWN. PT IS SINUS TACH ON TELE MONITOR. SATING WELL ON 2L N/C. RESPIRATIONS ARE EVEN AND UNLABORED. NO S/S OF RESPIRATORY DISTRESS OR SOB. IS WHEEZING. ALFARO CATH DRAINING TO GRAVITY. SKIN IS WARM AND DRY TO TOUCH. LEFT FOREARM IV SITE FLUSHED, PATENT. NORMAL SALINE RUNNING AT 75ML/HR. SAFETY PRECAUTIONS IMPLEMENTED. BED IN LOCKED, LOW POSITION. TWO SIDE RAILS UP. CALL LIGHT WITHIN REACH. WILL CONTINUE TO MONITOR.
[2017-01-05 08:00] VITALS: BP 93/68
[2017-01-05] MEDS: FLUTICASONE PROPIONATE 16 GM BOTTLE NS SCH (08:01)
[2017-01-05] MEDS: CALCIUM CITRATE(CITRACAL) /VITAMIN D 1 TAB TABLET PO SCH (08:02)
[2017-01-05] MEDS: ASCORBIC ACID 500 MG TABLET PO SCH (08:02)
[2017-01-05] MEDS: ASPIRIN 81 MG TAB.CHEW PO SCH (08:02)
[2017-01-05] MEDS: MONTELUKAST SODIUM (10MG) 10 MG TABLET PO SCH (08:02)
[2017-01-05] MEDS: VITAMIN E 400 UNIT CAPSULE PO SCH (08:02)
[2017-01-05] MEDS: FOLIC ACID 1 MG TABLET PO SCH ×2 (08:02→16:50)
[2017-01-05] MEDS: DIVALPROEX SODIUM 500 MG TABLET.DR PO SCH ×3 (08:02→16:46)
[2017-01-05] MEDS: BETHANECHOL CHLORIDE (25 MG) 25 MG TABLET PO SCH ×2 (08:03→16:47)
[2017-01-05] MEDS: LEVOTHYROXINE SODIUM 100 MCG TABLET PO SCH (08:03)
[2017-01-05] MEDS: PANTOPRAZOLE 40 MG TABLET.DR PO SCH (08:03)
[2017-01-05] MEDS: MULTIVIT, IRON, MIN NO. 8, FA 1 TAB TABLET PO SCH (08:03)
[2017-01-05] MEDS: ATORVASTATIN 40 MG TABLET PO SCH (08:03)
[2017-01-05] MEDS: NABUMETONE 500 MG TABLET PO SCH (08:03)
[2017-01-05] MEDS ORDERED: FENOFIBRATE NANOCRYS (145 MG) 145 MG TABLET PO SCH (09:00)
[2017-01-05] MEDS: ACETAMINOPHEN 325 MG TABLET PO PRN ×2 (10:38→16:47)
[2017-01-05] MEDS ORDERED: LEVO500T15 PO (10:47)
[2017-01-05 12:00] VITALS: BP 131/40
[2017-01-05] MEDS ORDERED: LEVOFLOXACIN (500MG) 500 MG TABLET PO SCH (12:00)
[2017-01-05] MEDS ORDERED: IV NS 0.9% 500 ML IV ONE (12:05)
[2017-01-05] MEDS: IV NS 0.9% 500 ML IV ONE ×2 (12:31→12:35)
[2017-01-05 13:39] VITALS: BP 140/71
[2017-01-05 16:00] VITALS: BP 145/52
[2017-01-05] MEDS: TAMSULOSIN 0.4 MG CAP.SR.24H PO SCH (16:47)
--- NOTE | 2017-01-05 19:10 | NUR ---
RN CLOSING NOTE PT IN BED RESTING COMFORTABLY. ALL MD ORDERS CARRIED OUT. SAFETY PRECAUTIONS IN PLACE AT ALL TIMES. PT IS DISCHARGED TO [facility]. WAITING FOR AMBULANCE FOR TRANSPORT. WILL GIVE REPORT TO PM RN FOR HEATHER.
--- NOTE | 2017-01-05 19:30 | NUR ---
POTATO PEELER NOTES PTS WAS PICKED UP BY AMBULANCE WITH EMT GOING TO [facility] , IN STABLE CONDITION PTS IS ALERT ORIENTED , V/S STABLE AFEBRILE DISCHARGE EDUCATION AND INSTRUCTION GIVEN BY MIKE MARSHALL.
[2017-01-06] MEDS ORDERED: LEVOFLOXACIN (250MG) 250 MG TABLET PO SCH (12:00)
[2017-01-08] MEDS ORDERED: ALENDRONATE 70 MG TABLET PO SCH (07:30)
== END 2017-01-05 21:29 | DRG 871 ==
LOC: ER 14:09 → TELE1 16:19
PROVIDERS: ADMIT Internal Medicine; ATTEND Internal Medicine
DX: A41.51 Sepsis due to Escherichia coli [E. coli] (principal); N17.0 Acute kidney failure with tubular necrosis; N39.0 Urinary tract infection, site not specified; D64.9 Anemia, unspecified; E03.9 Hypothyroidism, unspecified; E78.5 Hyperlipidemia, unspecified; G40.909 Epilepsy, unspecified, not intractable, without status epilepticus; M81.0 Age-related osteoporosis without current pathological fracture; Z79.899 Other long term (current) drug therapy; I12.9 Hypertensive chronic kidney disease with stage 1 through stage 4 chronic kidney disease, or unspecified chronic kidney disease; N18.9 Chronic kidney disease, unspecified; R65.20 Severe sepsis without septic shock
CPT/HCPCS: 36415; 70450-TC; 71010-TC; 76770-TC; 80048-TC; 80076-TC; 81000-TC; 83605-TC; 83735-TC; 84100-TC; 84484-TC; 85025-TC; 85730-TC; 87040-TC; 87081-TC; 87086-TC; 87186-TC; 94799-TC; 97001-TC; A4216; A4217; A4606; J0696; J1650; J1956; J2185; J2543; J3475; J3480; J7030; J7040; J7060; Z7610